=== PATIENT | female | born 1985 | race Caucasian/White ===

== ENCOUNTER 2016-10-12 21:01 | Emergency (ER) | payer OTHER | END 2016-10-12 21:45 | disposition home or self-care (01) | LOC: ER1 21:01 | DX: S70.262A Insect bite (nonvenomous), left hip, initial encounter (principal); K40.90 Unilateral inguinal hernia, without obstruction or gangrene, not specified as recurrent; W57.XXXA Bitten or stung by nonvenomous insect and other nonvenomous arthropods, initial encounter | CPT/HCPCS: 99283 ==

== ENCOUNTER 2016-10-22 00:54 | Emergency (ER) | payer OTHER | END 2016-10-22 03:30 | disposition home or self-care (01) | LOC: ER1 00:54 | DX: D17.39 Benign lipomatous neoplasm of skin and subcutaneous tissue of other sites (principal); F17.200 Nicotine dependence, unspecified, uncomplicated | CPT/HCPCS: 96372; 99283; J1885; J2550 ==

== ENCOUNTER 2021-09-28 14:11 | Emergency (ER) | payer OTHER ==
[~2021-09-28 14:11] MED LIST: KEPPRA500 MG PO; NAPROSYN500 MG PO
[2021-09-28] MEDS ORDERED: CEPHALEXIN500 MG PO (16:20)
== END 2021-09-28 16:30 | disposition home or self-care (01) ==
LOC: ER1 14:11
DX: L03.211 Cellulitis of face (principal); Z88.8 Allergy status to other drugs, medicaments and biological substances; F17.200 Nicotine dependence, unspecified, uncomplicated
CPT/HCPCS: 99283